=== PATIENT | female | born 1960 | race Caucasian/White ===

== ENCOUNTER → 2016-09-23 | Outpatient (CLI) | payer BC ==
--- NOTE | 2016-09-23 08:49 | MR ---
EXAMINATION TYPE: MR brain wo con DATE OF EXAM: 09/23/2016 8:20 AM. COMPARISON: CT scan of the brain dated 10/10/2011. HISTORY: Bilateral hand paresthesias. Technique: Multiplanar, multiecho imaging of the brain was obtained without intravenous contrast on a 3 Michelle magnet. FINDINGS: Midline structures are unremarkable. There is a normal craniocervical junction. Echoplanar diffusion imaging is normal. There are normal vascular flow voids. There is mucoperiosteal thickening involving the right frontal sinus. There is a small air-fluid leve l in the right maxillary sinus. There is also mucoperiosteal thickening involving the right frontal s inus and the anterior ethmoid air cells as well as the left maxillary sinus. Both orbits are normal. There is no evidence of a CP angle mass lesion. There is no focal lesion, mass effect or midline shift identified. I do not see evidence of intracran ial blood IMPRESSION: 1. NORMAL MRI OF THE BRAIN. 2. ACUTE ON CHRONIC MAXILLARY SINUSITIS.
== END | disposition home or self-care (01) ==
LOC: RADMRIMAIN 07:40
PROVIDERS: ATTEND Family Medicine
DX: R20.2 Paresthesia of skin (principal); M54.2 Cervicalgia
CPT/HCPCS: 70551

== ENCOUNTER → 2016-11-13 | Outpatient (CLI) | payer BC ==
--- NOTE | 2016-11-18 08:01 | MM ---
Reason for exam: screening (asymptomatic). Last mammogram was performed 1 year and 10 months ago. History: Family history of breast cancer in paternal grandmother. Physical Findings: A clinical breast exam by your physician is recommended on an annual basis and results should be correlated with mammographic findings. MG Screening Mammo w CAD Bilateral CC and MLO view(s) were taken. Prior study comparison: January 10, 2015, bilateral MG screening mammo w CAD. October 27, 2013, bilateral MG screening mammo w CAD. October 14, 2012, bilateral digital screening mammo w/CAD. There are scattered fibroglandular densities. Asymmetric density lateral left breast middle to posterior depth is more defined and warrants further evaluation. Summation density is possible as no correlate is seen on the MLO view. ASSESSMENT: Incomplete: need additional imaging evaluation, BI-RAD 0 RECOMMENDATION: Special view mammogram of the left breast. If lesion persists on supplemental views, image directed ultrasound is recommended. [facility] will attempt to contact patient to return for supplemental views and ultrasound if indicated.
== END | disposition home or self-care (01) ==
LOC: RADMAMWWP 16:39
PROVIDERS: ATTEND Obstetrics & Gynecology
DX: Z12.31 Encounter for screening mammogram for malignant neoplasm of breast (principal); R92.2 Inconclusive mammogram; Z80.3 Family history of malignant neoplasm of breast

== ENCOUNTER → 2016-11-21 | Outpatient (CLI) | payer BC ==
--- NOTE | 2016-11-21 12:06 | MM ---
Reason for exam: additional evaluation requested from abnormal screening. Last mammogram was performed less than 1 month ago. History: Family history of breast cancer in paternal grandmother. Physical Findings: Nurse did not find any significant physical abnormalities on exam. MG Work Up Mamm w CAD LT ML and spot compression CC view(s) were taken of the left breast. Prior study comparison: November 13, 2016, bilateral MG screening mammo w CAD. January 10, 2015, bilateral MG screening mammo w CAD. There are scattered fibroglandular densities. No significant new findings when compared with previous films. These results were verbally communicated with the patient and result sheet given to the patient on 11/21/16. ASSESSMENT: Benign, BI-RAD 2 RECOMMENDATION: Return to routine screening mammogram schedule for both breasts.
== END | disposition home or self-care (01) ==
LOC: RADMAMWWP 11:04
PROVIDERS: ATTEND Obstetrics & Gynecology
DX: R92.8 Other abnormal and inconclusive findings on diagnostic imaging of breast (principal)

== ENCOUNTER → 2017-07-30 | Outpatient (CLI) | payer BC ==
--- NOTE | 2017-07-30 15:39 | US ---
EXAMINATION TYPE: US axilla LT DATE OF EXAM: 07/30/2017 COMPARISON: NONE CLINICAL HISTORY: Localized Swell/MassLump L Axilla R22.32. Patient states odd feeling within upper l eft axilla that extends to the upper back, no palpable, no swelling, no discoloration, has been ongoi ng for almost a year with no known injury No obvious abnormality noted within axilla or upper left back. IMPRESSION: Scanning of area of concern shows no worrisome mass or fluid collection on images saved.
== END | disposition home or self-care (01) ==
LOC: RADUSWWP 14:36
PROVIDERS: ATTEND Family Medicine
DX: R22.32 Localized swelling, mass and lump, left upper limb (principal); R07.9 Chest pain, unspecified

== ENCOUNTER → 2017-12-08 | Outpatient (CLI) | payer BC ==
--- NOTE | 2017-12-08 15:50 | CT ---
EXAMINATION TYPE: CT sinus wo con DATE OF EXAM: 12/08/2017 COMPARISON: NONE HISTORY: Left ear and eye pain. CT DLP: 643 mGycm. Automated Exposure Control for Dose Reduction was Utilized. TECHNIQUE: CT scan of the sinuses is performed without contrast, axial images are obtained, coronal r eformatted images are also reviewed. FINDINGS: The paranasal sinuses including the frontal, ethmoid, sphenoid, and maxillary sinuses bila terally are well-aerated without abnormal opacification. The ostiomeatal complex is patent bilateral ly on the coronal images. There is a nasal septal deviation. Moderate size mark bullosa on the left incidentally noted. Visualized portion of mastoid air cells show no abnormal opacification. The globes are intact bilate rally. IMPRESSION: The sinuses are clear and the ostiomeatal complex is patent bilaterally.
== END | disposition home or self-care (01) ==
LOC: RADCTMAIN 15:19
PROVIDERS: ATTEND Family Medicine
DX: J01.01 Acute recurrent maxillary sinusitis (principal)
CPT/HCPCS: 70486

== ENCOUNTER 2018-04-23 11:38 | Inpatient (IN) | payer BC ==
[2018-04-23] MEDS ORDERED: ONDANSETRON 4 MG/2 ML VIAL IVP STA (13:32)
[2018-04-23] MEDS ORDERED: SODIUM CHLORIDE 0.9% 1,000 ML IV STA (13:32)
[2018-04-23] MEDS ORDERED: KETOROLAC 30 MG/ML 1 ML VIAL IVP STA (13:32)
--- NOTE | 2018-04-23 14:50 | CT ---
EXAMINATION TYPE: CT abdomen pelvis wo con DATE OF EXAM: 04/23/2018 COMPARISON: 04/06/2014 HISTORY: generalized abdominal pain CT DLP: 677.9 mGycm Automated exposure control for dose reduction was used. TECHNIQUE: Helical acquisition of images was performed from the lung bases through the pelvis. FINDINGS: Lack of intravenous contrast limits evaluation of the hollow and solid viscera. LUNG BASES: No significant abnormality is appreciated. Pectus excavatum deformity is partially visual ized. LIVER/GB: No significant abnormality is appreciated. Gallbladder is surgically absent. PANCREAS: Diffuse pancreatic atrophy is seen. SPLEEN: No significant abnormality is seen. ADRENALS: No significant abnormality is seen. KIDNEYS: No hydronephrosis or nephrolithiasis. FREE AIR: No free air is visualized REPRODUCTIVE ORGANS: No significant abnormality is seen URINARY BLADDER: No significant abnormality is seen. ADENOPATHY: No greater than 1 cm short axis lymph nodes are seen within the abdomen or pelvis given t he limitation of lack of intravenous contrast. OSSEOUS STRUCTURES: Scattered indeterminate subcentimeter sclerotic foci are seen within the pelvis, similar to 2014 presumably benign bone islands. Mild multilevel degenerative changes of the spine ar e noted. BOWEL: Small bowel is dilated distally up to 3.0 cm containing air-fluid levels and small bowel fece s sign of the distal and terminal ileum. There is also focal fat stranding surrounding the distal ile um. With trace amount of free fluid. There is decreased caliber of the terminal ileum without beaking . Findings are all suggestive of high-grade partial small bowel obstruction. Colon is entirely decomp ressed. There is lipomatous hypertrophy of the ileocecal valve. Intraluminal density within the right mid abdominal small bowel creates spray artifact from ingested substance. IMPRESSION: FINDINGS MOST COMPATIBLE WITH HIGH-GRADE PARTIAL SMALL BOWEL OBSTRUCTION WITH SMALL AMOUN T OF MESENTERIC EDEMA AND FAT STRANDING SURROUNDING THE NARROWED DISTAL ILEUM AND TERMINAL ILEUM WITH OUT BEAKING.
--- NOTE | 2018-04-23 15:02 | ED ---
General Adult HPI <Bob Bolaños - Last Filed: 04/23/18 16:00> - General Source: patient, RN notes reviewed Mode of arrival: ambulatory Limitations: no limitations <Magen Ellis - Last Filed: 04/23/18 17:13> - General Chief complaint: Nausea/Vomiting/Diarrhea Stated complaint: poss bowel obstruction Time Seen by Provider: 04/23/18 13:11 - History of Present Illness Initial comments: 58-year-old female with past medical history of hypertension and follow-up section 2 presents to the emergency department for a chief complaint abdominal pain and vomiting 2 days. Patient states she noticed this pain start yesterday. She states it is sharp pain in her upper abdomen as well as left lower quadrant. She states she normally has 4-6 loose stools per day but does not believe she had any bowel movements yesterday. She states she did have one small stool earlier today. Patient is not sure if she is passing gas. She is vomiting multiple times. She saw her primary care provider today and an x-ray was ordered. Patient states that after seeing the x-ray her physician was concerned for bowel obstruction and referred her to the emergency department. Patient has had a cholecystectomy about 30 years ago. Patient has no other complaints at this time including shortness of breath, chest pain, headache, or visual changes. (Magen Ellis) - Related Data Home Medications Medication Instructions Recorded Confirmed Meloxicam 15 mg PO DAILY 04/23/18 04/23/18 Allergies Allergy/AdvReac Type Severity Reaction Status Date / Time Iodinated Contrast- Oral and Allergy Severe Anaphylaxis Verified 04/23/18 12:06 IV Dye [Iodinated Contrast Media - IV Dye] Sulfa (Sulfonamide Allergy Rash/Hives Verified 04/23/18 12:06 Antibiotics) Review of Systems ROS Other: All systems not noted in ROS Statement are negative. <Bob Bolaños - Last Filed: 04/23/18 16:00> ROS Other: All systems not noted in ROS Statement are negative. <Magen Ellis - Last Filed: 04/23/18 17:13> ROS Statement: Those systems with pertinent positive or pertinent negative responses have been documented in the HPI. Past Medical History Additional Past Medical History / Comment(s): BOWEL OBSTRUCTION x2; KIDNEY STONE History of Any Multi-Drug Resistant Organisms: None Reported Past Surgical History: Cholecystectomy Additional Past Surgical History / Comment(s): LITHOTRIPSY Past Psychological History: No Psychological Hx Reported Smoking Status: Former smoker Past Alcohol Use History: None Reported Past Drug Use History: None Reported <Magen Ellis - Last Filed: 04/23/18 17:13> General Exam Limitations: no limitations General appearance: alert, in no apparent distress Head exam: Present: atraumatic, normocephalic, normal inspection ENT exam: Present: normal exam, mucous membranes moist Neck exam: Present: normal inspection, full ROM. Absent: tenderness, meningismus, lymphadenopathy Respiratory exam: Present: normal lung sounds bilaterally. Absent: respiratory distress, wheezes, rales, rhonchi, stridor Cardiovascular Exam: Present: regular rate, normal rhythm, normal heart sounds. Absent: bradycardia, tachycardia, irregular rhythm GI/Abdominal exam: Present: soft, tenderness (Upper abdominal tenderness in the right last in epigastric area. Mild left lower quadrant tenderness. No right lower quadrant tenderness.), normal bowel sounds. Absent: distended, rebound, rigid <Magen Ellis - Last Filed: 04/23/18 17:13> Course <Bob Bolaños - Last Filed: 04/23/18 16:00> <Magen Ellis - Last Filed: 04/23/18 17:13> Vital Signs 04/23/18 12:04 Temperature 97.4 F L Pulse Rate 58 L Respiratory 18 Rate Blood Pressure 119/82 O2 Sat by Pulse 99 Oximetry - Reevaluation(s) Reevaluation #1: 04/23/18 16:00 PA supervision: I proceeded [id number] evaluation the patient and did discuss findings with her and her . Patient did present with complaints of abdominal pain and especially epigastric region. Discomfort there. This is somewhat of a previous episode she had a bowel obstruction the resolved after nasogastric suction and IV fluids. Patient did have a CAT scan shows evidence of obstruction. Patient be admitted I did discuss case with Dr. Malin. Dr. Obrien will be consulted. I do agree with the assessment and plan (Bob Bolaños) Medical Decision Making - Lab Data Result diagrams: 04/23/18 15:05 <Bob Bolaños - Last Filed: 04/23/18 16:00> - Lab Data Result diagrams: 04/23/18 15:05 04/23/18 15:05 <Magen Ellis P - Last Filed: 04/23/18 17:13> - Medical Decision Making 58-year-old female with a past medical history of 2 bowel obstructions presents to the emergency department for abdominal pain. Patient had an x-ray outpatient earlier today that indicated bowel obstruction with possible. Patient states she has been vomiting multiple times a day since yesterday. She did have a small stool earlier today but is not sure if she is passing gas. On exam patient does have some tenderness of the upper abdomen without rebound. Patient states she has had small bowel obstructions in the past that did not require surgery but did require an NG tube. Patient states her only abdominal surgery was a cholecystectomy [address] shows high-grade partial small bowel obstruction with small amount of mesenteric edema and fat stranding surrounding the narrowed distal ileum and terminal ileum without beaking. Patient will have NG tube inserted, nothing by mouth and admitted with surgical consult. (Magen Ellis) - Lab Data Lab Results 04/23/18 04/23/18 04/23/18 Range/Units 15:05 15:05 15:05 WBC 10.0 (3.8-10.6) k/uL RBC 5.16 (3.80-5.40) m/uL Hgb 15.4 (11.4-16.0) gm/dL Hct 44.7 (34.0-46.0) % MCV 86.6 (80.0-100.0) fL MCH 29.9 (25.0-35.0) pg MCHC 34.5 (31.0-37.0) g/dL RDW 12.6 (11.5-15.5) % Plt Count 166 (150-450) k/uL Neutrophils % 89 % Lymphocytes % 7 % Monocytes % 4 % Eosinophils % 0 % Basophils % 0 % Neutrophils # 8.9 H (1.3-7.7) k/uL Lymphocytes # 0.7 L (1.0-4.8) k/uL Monocytes # 0.4 (0-1.0) k/uL Eosinophils # 0.0 (0-0.7) k/uL Basophils # 0.0 (0-0.2) k/uL Sodium 143 (137-145) mmol/L Potassium 4.2 (3.5-5.1) mmol/L Chloride 107 (98-107) mmol/L Carbon Dioxide 25 (22-30) mmol/L Anion Gap 11 mmol/L BUN 13 (7-17) mg/dL Creatinine 0.48 L (0.52-1.04) mg/dL Est GFR (CKD-EPI)AfAm >90 (>60 ml/min/1.73 sqM) Est GFR (CKD-EPI)NonAf >90 (>60 ml/min/1.73 sqM) Glucose 112 H (74-99) mg/dL Plasma Lactic Acid Hector 1.9 (0.7-2.0) mmol/L Calcium 9.4 (8.4-10.2) mg/dL Total Bilirubin 1.1 (0.2-1.3) mg/dL AST 42 H (14-36) U/L ALT 55 H (9-52) U/L Alkaline Phosphatase 82 (38-126) U/L Total Protein 7.4 (6.3-8.2) g/dL Albumin 4.4 (3.5-5.0) g/dL Amylase 34 (30-110) U/L Lipase 14 L (23-300) U/L Disposition <Bob Bolaños - Last Filed: 04/23/18 16:00> Is patient prescribed a controlled substance at d/c from ED?: No Time of Disposition: 17:13 <Magen Ellis - Last Filed: 04/23/18 17:13> Clinical Impression: Small bowel obstruction Disposition: ADMITTED IP TO THIS HOSP Condition: Good Referrals: Wenceslao Jackson DO [Primary Care Provider] - 1-2 days
[2018-04-23 15:28] LABS: ALT 55 U/L (9-52); AST 42 U/L (14-36); Albumin 4.4 g/dL (3.5-5.0); Alkaline Phosphatase 82 U/L (38-126); Amylase 34 U/L (30-110); Anion Gap 11 mmol/L; Blood Urea Nitrogen 13 mg/dL (7-17); Calcium 9.4 mg/dL (8.4-10.2); Carbon Dioxide 25 mmol/L (22-30); Chloride 107 mmol/L (98-107); Glucose 112 mg/dL (74-99); Lipase 14 U/L (23-300); Potassium 4.2 mmol/L (3.5-5.1); Sodium 143 mmol/L (137-145); Total Bilirubin 1.1 mg/dL (0.2-1.3); Total Protein 7.4 g/dL (6.3-8.2)
[2018-04-23] MEDS ORDERED: ONDANSETRON 4 MG/2 ML VIAL IVP PRN (15:40)
[2018-04-23] MEDS ORDERED: MORPHINE SULFATE 4 MG/ML SYRINGE IV PRN (15:40)
[2018-04-23] MEDS ORDERED: NALOXONE 0.4 MG/ML 1 ML VIAL IV PRN (15:40)
[2018-04-23] MEDS ORDERED: SODIUM CHLORIDE 0.9% 1,000 ML IV SCH (15:45)
[2018-04-23 16:03] LABS: Basophils % (A) 0 %; Eosinophils % (A) 0 %; HCT 44.7 % (34.0-46.0); HGB 15.4 gm/dL (11.4-16.0); Lymphocytes # (A) 0.7 k/uL (1.0-4.8); Lymphocytes % (A) 7 %; MCH 29.9 pg (25.0-35.0); MCHC 34.5 g/dL (31.0-37.0); MCV 86.6 fL (80.0-100.0); Mean Platelet Volume 7.4; Monocytes # (A) 0.4 k/uL (0-1.0); Monocytes % (A) 4 %; Neutrophils # (A) 8.9 k/uL (1.3-7.7); Neutrophils % (A) 89 %; Platelet Count 166 k/uL (150-450); RBC 5.16 m/uL (3.80-5.40); RDW 12.6 % (11.5-15.5)
[2018-04-23] MEDS: 0.9% NACL WITH KCL 20 MEQ/L 1,000 ML IV SCH (16:25)
--- NOTE | 2018-04-23 17:41 | XR ---
EXAMINATION TYPE: XR chest 1V portable DATE OF EXAM: 04/23/2018 COMPARISON: NONE HISTORY: NG tube placement TECHNIQUE: Single frontal view of the chest is obtained. FINDINGS: there is nasogastric tube and the tip appears to be at the gastroesophageal junction in th e distal esophagus. The lungs are clear. There is no heart failure. There is no pleural effusion. IMPRESSION: Nasogastric tube does not appear to be in the stomach.
[2018-04-23 19:24] VITALS: BMI 31.6
--- NOTE | 2018-04-23 19:25 | XR ---
EXAMINATION TYPE: XR chest 1V portable DATE OF EXAM: 04/23/2018 COMPARISON: Today HISTORY: Check tube placement TECHNIQUE: Single frontal view of the chest is obtained. FINDINGS: There is nasogastric tube with the tip in the body of the stomach. Lungs are clear. There is no heart failure. Heart is normal. There is no pleural effusion. Bony thorax appears intact. IMPRESSION: Nasogastric tube appears in good position.
[2018-04-23] MEDS: KETOROLAC 30 MG/ML 1 ML VIAL IVP PRN (22:11)
[2018-04-23 22:46] LABS: Appearance,Urine Cloudy (Clear); Bacteria,Urine Rare /hpf; Bilirubin,Urine Negative (Negative); Blood,Urine Negative (Negative); Color,Urine Yellow; Glucose,Urine (UA) Negative (Negative); Ketones,Urine 1+ (Negative); Leukocyte Esterase,Urine Small (Negative); Mucus,Urine Moderate /hpf; Nitrite,Urine Negative (Negative); PH, Urine 5.5 (5.0-8.0); Protein,Urine Trace (Negative); RBC,Urine 3 /hpf (0-5); Specific Gravity,Urine 1.023 (1.001-1.035); Squamous Epithelial Cell,Urine 4 /hpf (0-4); Urobilinogen,Urine <2.0 mg/dL (<2.0); WBC,Urine 6 /hpf (0-5)
[2018-04-24] MEDS: 0.9% NACL WITH KCL 20 MEQ/L 1,000 ML IV SCH ×2 (02:05→12:11)
[2018-04-24] MEDS: KETOROLAC 30 MG/ML 1 ML VIAL IVP PRN (04:21)
--- NOTE | 2018-04-24 12:21 | P.GSCN ---
History of Present Illness Consult date: 04/24/18 Reason for Consult: Bowel obstruction History of present illness: Patient known to our service. She presents to the ER yesterday with complaints of numerous episodes of nausea and vomiting. 2 days ago in the evening she started to feel nauseated with some mild epigastric pain. Yesterday the pain persisted in the epigastric region was also associated with numerous episodes of emesis. Appetite diminished. Pain is shifted somewhat down to the periumbilical region. Denies fevers. Describe some bloating. Small bowel movement yesterday morning and again today. In 2013 the patient had a somewhat similar episode. Prior to that she had an additional bowel obstruction. Recent colonoscopy normal with the exception of a polyp. The patient has had a small bowel series in the past that was normal. She has been seen by GI in the past for possible inflammatory bowel disease however a definitive diagnosis was never made. Describes 4-5 loose stools daily which is normal for her. No family history of inflammatory bowel disease. No rectal bleeding or melena. White blood cell count normal at 10. Review of Systems The patient denies any acute changes in vision or hearing, no dysphagia or odynophagia, no chest pain or shortness of breath, no dysuria or hematuria, no headache, no runny nose, no rectal bleeding or melena, no unexplained weight loss Past Medical History Additional Past Medical History / Comment(s): BOWEL OBSTRUCTION x2; KIDNEY STONE History of Any Multi-Drug Resistant Organisms: None Reported Past Surgical History: Cholecystectomy Additional Past Surgical History / Comment(s): LITHOTRIPSY Past Psychological History: No Psychological Hx Reported Smoking Status: Former smoker Past Alcohol Use History: None Reported Past Drug Use History: None Reported - Past Family History Mother Family Medical History: Hypertension Additional Family Medical History / Comment(s): dementia Father Family Medical History: Myocardial Infarction ([place]) Medications and Allergies Home Medications Medication Instructions Recorded Confirmed Type Meloxicam 15 mg PO DAILY 04/23/18 04/23/18 History Allergies Allergy/AdvReac Type Severity Reaction Status Date / Time Iodinated Contrast- Oral and Allergy Severe Anaphylaxis Verified 04/23/18 12:06 IV Dye [Iodinated Contrast Media - IV Dye] Sulfa (Sulfonamide Allergy Rash/Hives Verified 04/23/18 12:06 Antibiotics) Surgical - Exam Vital Signs Temp Pulse Resp BP Pulse Ox 97.4 F L 58 L 18 119/82 99 04/23/18 12:04 04/23/18 12:04 04/23/18 12:04 04/23/18 12:04 04/23/18 12:04 Physical exam: General: Well-developed, well-nourished HEENT: Normocephalic, sclerae nonicteric Abdomen: Mild mid abdominal tenderness, minimal distention Extremities: No edema Neuro: Alert and oriented Results - Labs 04/23/18 15:05 04/23/18 15:05 Abnormal Lab Results - Last 24 Hours (Table) 04/23/18 04/23/18 04/23/18 Range/Units 15:05 15:05 22:22 Neutrophils # 8.9 H (1.3-7.7) k/uL Lymphocytes # 0.7 L (1.0-4.8) k/uL Creatinine 0.48 L (0.52-1.04) mg/dL Glucose 112 H (74-99) mg/dL AST 42 H (14-36) U/L ALT 55 H (9-52) U/L Lipase 14 L (23-300) U/L Urine Appearance Cloudy H (Clear) Urine Protein Trace H (Negative) Urine Ketones 1+ H (Negative) Ur Leukocyte Esterase Small H (Negative) Urine WBC 6 H (0-5) /hpf Urine Bacteria Rare H (None) /hpf Urine Mucus Moderate H (None) /hpf Diabetes panel 04/23/18 Range/Units 15:05 Sodium 143 (137-145) mmol/L Potassium 4.2 (3.5-5.1) mmol/L Chloride 107 (98-107) mmol/L Carbon Dioxide 25 (22-30) mmol/L BUN 13 (7-17) mg/dL Creatinine 0.48 L (0.52-1.04) mg/dL Glucose 112 H (74-99) mg/dL Calcium 9.4 (8.4-10.2) mg/dL AST 42 H (14-36) U/L ALT 55 H (9-52) U/L Alkaline Phosphatase 82 (38-126) U/L Total Protein 7.4 (6.3-8.2) g/dL Albumin 4.4 (3.5-5.0) g/dL Calcium panel 04/23/18 Range/Units 15:05 Calcium 9.4 (8.4-10.2) mg/dL Albumin 4.4 (3.5-5.0) g/dL Pituitary panel 04/23/18 Range/Units 15:05 Sodium 143 (137-145) mmol/L Potassium 4.2 (3.5-5.1) mmol/L Chloride 107 (98-107) mmol/L Carbon Dioxide 25 (22-30) mmol/L BUN 13 (7-17) mg/dL Creatinine 0.48 L (0.52-1.04) mg/dL Glucose 112 H (74-99) mg/dL Calcium 9.4 (8.4-10.2) mg/dL Adrenal panel 04/23/18 Range/Units 15:05 Sodium 143 (137-145) mmol/L Potassium 4.2 (3.5-5.1) mmol/L Chloride 107 (98-107) mmol/L Carbon Dioxide 25 (22-30) mmol/L BUN 13 (7-17) mg/dL Creatinine 0.48 L (0.52-1.04) mg/dL Glucose 112 H (74-99) mg/dL Calcium 9.4 (8.4-10.2) mg/dL Total Bilirubin 1.1 (0.2-1.3) mg/dL AST 42 H (14-36) U/L ALT 55 H (9-52) U/L Alkaline Phosphatase 82 (38-126) U/L Total Protein 7.4 (6.3-8.2) g/dL Albumin 4.4 (3.5-5.0) g/dL Assessment and Plan (1) Small bowel obstruction Narrative/Plan: Patient with clinical presentation of small bowel obstruction. Looking at the CAT scan the transition point seems to be in the terminal ileum. There is minimal inflammatory changes. I do not see thickening of the terminal ileum to suggest definite inflammatory bowel disease. The patient responded quite well to conservative therapy in the past. She would like to avoid surgery if possible. We'll plan repeat abdominal x-rays tomorrow. Tentatively plan small bowel follow-through on Thursday morning. We'll follow closely. Current Visit: Yes Status: Acute Code(s): K56.69 - OTHER INTESTINAL OBSTRUCTION * DO NOT USE * SNOMED Code(s): 608627064
--- NOTE | 2018-04-24 15:18 | P.HPIM ---
History of Present Illness H&P Date: 04/23/18 (Late chart entry; patient seen in ED 08-09) Chief Complaint: Nausea vomiting and diarrhea 58-year-old female with past medical history of hypertension and follow-up section 2 presents to the emergency department for a chief complaint abdominal pain and vomiting 2 days. Patient states she noticed this pain start yesterday. She states it is sharp pain in her upper abdomen as well as left lower quadrant. She states she normally has 4-6 loose stools per day but does not believe she had any bowel movements yesterday. She states she did have one small stool earlier today. Patient is not sure if she is passing gas. She is vomiting multiple times. She saw her primary care provider today and an x-ray was ordered. Patient states that after seeing the x-ray her physician was concerned for bowel obstruction and referred her to the emergency department. Patient has had a cholecystectomy about 30 years ago. Patient has no other complaints at this time including shortness of breath, chest pain, headache, or visual changes. Review of Systems Constitutional: Reports weakness, Denies chills, Denies fever Eyes: denies blurred vision, denies loss of vision Ears, nose, mouth and throat: Denies headache Cardiovascular: Denies chest pain, Denies shortness of breath Respiratory: Denies congestion, Denies cough Gastrointestinal: Reports abdominal pain, Reports diarrhea, Reports nausea, Reports vomiting Genitourinary: Denies dysuria, Denies hematuria Musculoskeletal: Denies gait dysfunction, Denies low back pain, Denies myalgias Integumentary: Denies color changes, Denies rash Neurological: Denies confusion, Denies numbness, Denies visual changes Psychiatric: Denies anxiety Endocrine: Denies cold intolerance, Denies polydipsia, Denies polyuria Hematologic/Lymphatic: Denies easy bruising, Denies lymphadenopathy Past Medical History Additional Past Medical History / Comment(s): BOWEL OBSTRUCTION x2; KIDNEY STONE History of Any Multi-Drug Resistant Organisms: None Reported Past Surgical History: Cholecystectomy Additional Past Surgical History / Comment(s): LITHOTRIPSY Past Psychological History: No Psychological Hx Reported Smoking Status: Former smoker Past Alcohol Use History: None Reported Past Drug Use History: None Reported - Past Family History Mother Family Medical History: Hypertension Additional Family Medical History / Comment(s): dementia Father Family Medical History: Myocardial Infarction (MD) Medications and Allergies Home Medications Medication Instructions Recorded Confirmed Type Meloxicam 15 mg PO DAILY 04/23/18 04/23/18 History Allergies Allergy/AdvReac Type Severity Reaction Status Date / Time Iodinated Contrast- Oral and Allergy Severe Anaphylaxis Verified 04/23/18 12:06 IV Dye [Iodinated Contrast Media - IV Dye] Sulfa (Sulfonamide Allergy Rash/Hives Verified 04/23/18 12:06 Antibiotics) Physical Exam Vitals: Vital Signs Temp Pulse Pulse Resp BP BP Pulse Ox 04/24/18 07:00 97.9 F 61 14 148/74 97 04/23/18 23:25 98.3 F 66 18 144/70 95 04/23/18 20:26 98.2 F 69 12 152/75 95 04/23/18 17:53 80 16 151/85 98 Intake and Output 04/23/18 04/24/18 04/24/18 22:59 06:59 14:59 Intake Total 400 800 700 Output Total 350 Balance 50 800 700 Intake: Intake, IV Titration 400 800 700 Amount 0.9% NaCl with KCl 20 Meq 400 800 700 /l 1,000 ml @ 100 mls/hr IV .Q10H SHYAM Rx#: [id number] Output: Gastric Drainage 350 Other: Voiding Method Toilet Toilet Toilet # Voids 1 1 Weight 94.347 kg 94.347 kg - Constitutional General appearance: Present: average body habitus, cooperative, no acute distress - EENT Eyes: Present: anicteric sclerae, EOMI, PERRLA, normal appearance - Neck Neck: Present: normal ROM. Absent: lymphadenopathy, rigidity, thyromegaly Carotids: negative: bruit present Thyroid: bilateral: normal size, negative: enlarged, nodule Respiratory: bilateral: CTA, negative: rales, rhonchi, wheezing - Cardiovascular Rhythm: regular Heart sounds: normal: S1, S2 Abnormal Heart Sounds: Absent: systolic murmur, diastolic murmur General gastrointestinal: Present: normal bowel sounds, firm, mildly distended, mild tenderness Genitourinary Comment(s): deferred Integumentary: Present: normal turgor. Absent: jaundiced, rash, ulcer Neurologic: Present: CNII-XII intact. Absent: focal deficits Musculoskeletal: Present: gait normal, strength equal bilaterally Psychiatric: Present: A&O x's 3, appropriate affect, intact judgment & insight - Neck Neck: no lymphadenopathy, no thyromegaly Results CBC & Chem 7: 04/23/18 15:05 04/23/18 15:05 Labs: Abnormal Lab Results - Last 24 Hours (Table) 04/23/18 04/23/18 04/23/18 Range/Units 15:05 15:05 22:22 Neutrophils # 8.9 H (1.3-7.7) k/uL Lymphocytes # 0.7 L (1.0-4.8) k/uL Creatinine 0.48 L (0.52-1.04) mg/dL Glucose 112 H (74-99) mg/dL AST 42 H (14-36) U/L ALT 55 H (9-52) U/L Lipase 14 L (23-300) U/L Urine Appearance Cloudy H (Clear) Urine Protein Trace H (Negative) Urine Ketones 1+ H (Negative) Ur Leukocyte Esterase Small H (Negative) Urine WBC 6 H (0-5) /hpf Urine Bacteria Rare H (None) /hpf Urine Mucus Moderate H (None) /hpf Thrombosis Risk Factor Assmnt - Choose All That Apply Any of the Below Risk Factors Present?: Yes Each Factor Represents 1 point: Age 41-60 years, Obesity (BMI >25) Other Risk Factors: No Other congenital or acquired thrombophilia - If yes, enter type in comment: No Thrombosis Risk Factor Assessment Total Risk Factor Score: 2 Thrombosis Risk Factor Assessment Level: Low Risk Assessment and Plan Assessment: 1. Small bowel obstruction - We will admit the patient to general medical floor - Continue with IV fluid hydration; NG tube and keep patient nothing by mouth - We plan to repeat abdominal x-ray in the morning and possible small bowel follow-through on Thursday - Surgery is consulted and recommendations are pending - We will monitor renal function and electrolytes closely 2. Possible UTI - Patient is afebrile and asymptomatic with normal white blood count - We will send urine for culture and sensitivity; we will start antibiotics if urine cultures positive or patient becomes symptomatic 3. Transaminitis - Unclear etiology; we will monitor liver enzymes closely and further evaluation if continue to trend up 4. DVT prophylaxis; SCDs only CODE STATUS; full code Time with Patient: Greater than 30
--- NOTE | 2018-04-24 15:55 | P.PN ---
Subjective Progress Note Date: 04/24/18 Principal diagnosis: Small bowel obstruction Mr. Garcia is a 58-year-old female with a past medical history of hypertension admitted to the hospital with a chief complaint of abdominal pain and vomiting for 2 days. Patient had a CAT scan of the abdomen showing high-grade partial small bowel obstruction with small amount of the centric edema. So the patient has been admitted for partial small bowel obstruction. Patient has an NG tube in place. on 04/24/18 - This morning patient is lying in bed appears to be no acute distress. Patient states that she has not been throwing up since having the NG tube. She still is nauseous. Patient denies having any chest pain or palpitations. No cough or difficulty in breathing. She states that she can feel some cramping sensation in her abdomen. But she is not passing any gas. Objective - Vital Signs Vital signs: Vital Signs Temp 97.9 F 04/24/18 07:00 Pulse 61 04/24/18 07:00 Resp 14 04/24/18 07:00 BP 148/74 04/24/18 07:00 Pulse Ox 97 04/24/18 07:00 Intake & Output 04/23/18 04/24/18 04/24/18 18:59 06:59 18:59 Intake Total 1200 700 Output Total 350 Balance 850 700 Weight 94.347 kg 94.347 kg Intake: Intake, IV Titration 1200 700 Amount 0.9% NaCl with KCl 20 Meq 1200 700 /l 1,000 ml @ 100 mls/hr IV .Q10H SHYAM Rx#: [id number] Output: Gastric Drainage 350 Other: Voiding Method Toilet Toilet # Voids 1 - Exam Gen. examination-patient appears to be no acute distress, NG tube in place. HEENT-no pallor no icterus Neck-no JVD no thyromegaly Cardiovascular S1 and S2 heard Respiratory-bilateral breath sounds diminished at the lower lung bases. No wheezing or crackles. Abdomen - soft, mild tenderness in the epigastric region, hyperactive bowel sounds Extremities-no edema, no cyanosis. 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 No focal neurological deficits. - Labs CBC & Chem 7: 04/23/18 15:05 04/23/18 15:05 Labs: Abnormal Lab Results - Last 24 Hours (Table) 11/02/18 11/02/18 Range/Units 15:05 22:22 Neutrophils # 8.9 H (1.3-7.7) k/uL Lymphocytes # 0.7 L (1.0-4.8) k/uL Urine Appearance Cloudy H (Clear) Urine Protein Trace H (Negative) Urine Ketones 1+ H (Negative) Ur Leukocyte Esterase Small H (Negative) Urine WBC 6 H (0-5) /hpf Urine Bacteria Rare H (None) /hpf Urine Mucus Moderate H (None) /hpf Assessment and Plan Assessment: Partial small bowel obstruction Possible UTI Hypertension History of cholecystectomy Plan: Patient has NG tube in place. We will continue the current medication regimen. Surgery on board following the patient. Patient will be followed by Dr. Holman from tomorrow.
[2018-04-25] MEDS: 0.9% NACL WITH KCL 20 MEQ/L 1,000 ML IV SCH ×4 (04:13→19:36)
--- NOTE | 2018-04-25 06:34 | XR ---
EXAMINATION TYPE: XR abdomen 2V , 3 VIEWS DATE OF EXAM ORDERED: 04/25/2018 HISTORY: Follow-up obstruction. COMPARISON: Previous study dated 04/23/2018. FINDINGS: There has been a previous cholecystectomy. There is an NG tube with its tip in the stomach . Lung bases are clear. Long air-fluid levels in the proximal small bowel have resolved. There is no evidence of obstruction at this time. There is no evidence of free air. There are phleboliths within the pelvis. IMPRESSION: RESOLUTION OF THE PATIENT'S PARTIAL SMALL BOWEL OBSTRUCTION.
[2018-04-25] MEDS: KETOROLAC 30 MG/ML 1 ML VIAL IVP PRN ×2 (14:14→23:24)
--- NOTE | 2018-04-25 15:35 | P.PN ---
Subjective Progress Note Date: 04/25/18 Principal diagnosis: Small bowel obstruction Patient doing well today. Actually complaining of a headache. She had liquid stools yesterday. Some flatus today. Mild left upper quadrant abdominal pain. Today's x-rays show improvement. Objective - Vital Signs Vital signs: Vital Signs Temp 99.8 F H 04/25/18 15:00 Pulse 77 04/25/18 15:00 Resp 12 04/25/18 15:00 BP 149/81 04/25/18 15:00 Pulse Ox 98 04/25/18 15:00 Intake & Output 04/24/18 04/25/18 04/25/18 19:59 06:59 18:59 Intake Total 700 Balance 700 Weight 94.347 kg Intake: Intake, IV Titration 700 Amount 0.9% NaCl with KCl 20 Meq 700 /l 1,000 ml @ 100 mls/hr IV .Q10H SHYAM Rx#: [id number] Other: Voiding Method Toilet # Voids - Exam Abdomen: Soft, mild diffuse tenderness - Labs CBC & Chem 7: 04/23/18 15:05 04/23/18 15:05 Assessment and Plan (1) Small bowel obstruction Narrative/Plan: Will order small bowel series for tomorrow. Keep nasogastric tube in place for now. Current Visit: Yes Status: Acute Code(s): K56.69 - OTHER INTESTINAL OBSTRUCTION * DO NOT USE * [employer] Code(s): 183381598
--- NOTE | 2018-04-25 22:31 | P.PN ---
Subjective Progress Note Date: 04/25/18 Principal diagnosis: Small bowel obstruction Mr. Garcia is a 58-year-old female with a past medical history of hypertension admitted to the hospital with a chief complaint of abdominal pain and vomiting for 2 days. Patient had a CAT scan of the abdomen showing high-grade partial small bowel obstruction with small amount of the centric edema. So the patient has been admitted for partial small bowel obstruction. Patient has an NG tube in place. on 04/25/18 - This morning patient is lying in bed appears to be no acute distress. Patient states that she has not been throwing up since having the NG tube. She still is nauseous. Patient denies having any chest pain or palpitations. No cough or difficulty in breathing. She states that she can feel some cramping sensation in her abdomen. She did not have a bowel movement but passing flatus. Objective - Vital Signs Vital signs: Vital Signs Temp 99.8 F H 04/25/18 15:00 Pulse 77 04/25/18 15:00 Resp 12 04/25/18 15:00 BP 149/81 04/25/18 15:00 Pulse Ox 98 04/25/18 15:00 Intake & Output 04/24/18 04/25/18 04/25/18 19:59 06:59 18:59 Intake Total 700 Balance 700 Weight 94.347 kg Intake: Intake, IV Titration 700 Amount 0.9% NaCl with KCl 20 Meq 700 /l 1,000 ml @ 100 mls/hr IV .Q10H SHYAM Rx#: [id number] Other: Voiding Method Toilet # Voids - Exam Gen. examination-patient appears to be no acute distress, NG tube in place. HEENT-no pallor no icterus Neck-no JVD no thyromegaly Cardiovascular S1 and S2 heard Respiratory-bilateral breath sounds diminished at the lower lung bases. No wheezing or crackles. Abdomen - soft, mild tenderness in the epigastric region, hypoactive bowel sounds Extremities-no edema, no cyanosis. 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 No focal neurological deficits. - Labs CBC & Chem 7: 04/23/18 15:05 04/23/18 15:05 Assessment and Plan Assessment: Partial small bowel obstruction Possible UTI Hypertension History of cholecystectomy Plan: Patient has NG tube in place. We will continue the current medication regimen. Surgery on board following the patient. Further recommendations to follow depending on the progress of the patient.
[2018-04-26] MEDS: 0.9% NACL WITH KCL 20 MEQ/L 1,000 ML IV SCH (05:32)
[2018-04-26 07:28] VITALS: BP 153/81; PULSE 67; RESP 16; TEMP 97.7
[2018-04-26 08:24] LABS: Basophils % (A) 0 %; Eosinophils # (A) 0.1 k/uL (0-0.7); Eosinophils % (A) 1 %; HCT 41.7 % (34.0-46.0); HGB 14.4 gm/dL (11.4-16.0); Lymphocytes # (A) 1.3 k/uL (1.0-4.8); Lymphocytes % (A) 15 %; MCH 29.4 pg (25.0-35.0); MCHC 34.4 g/dL (31.0-37.0); MCV 85.4 fL (80.0-100.0); Mean Platelet Volume 6.9; Monocytes # (A) 0.5 k/uL (0-1.0); Monocytes % (A) 6 %; Neutrophils # (A) 6.6 k/uL (1.3-7.7); Neutrophils % (A) 76 %; Platelet Count 158 k/uL (150-450); RBC 4.88 m/uL (3.80-5.40); RDW 12.1 % (11.5-15.5); WBC 8.6 k/uL (3.8-10.6)
[2018-04-26 08:40] LABS: Anion Gap 8 mmol/L; Blood Urea Nitrogen 14 mg/dL (7-17); Carbon Dioxide 26 mmol/L (22-30); Chloride 104 mmol/L (98-107); Glucose 73 mg/dL (74-99); Potassium 4.7 mmol/L (3.5-5.1); Sodium 138 mmol/L (137-145)
[2018-04-26] MEDS ORDERED: ACETAMINOPHEN IV (For NPO) 1,000 MG in EMPTY BAG 1 BAG IVPB SCH (10:32)
--- NOTE | 2018-04-26 10:42 | FL ---
EXAMINATION TYPE: FL small bowel follow through DATE OF EXAM: 04/26/2018 CLINICAL HISTORY: Evaluate for obstruction TECHNIQUE: A single contrast small bowel follow through is performed utilizing barium. COMPARISON: None FINDINGS: Beef Killer image of the abdomen shows no gross abnormality. The small bowel study shows normal transit to the colon in less than 30 minutes. There is a thickene d mucosal fold pattern throughout the distal small bowel. There is no evidence of any stricture. No definite filling defect 1 minute and 8 seconds of fluoroscopy and 10 images submitted IMPRESSION: 1. No diagnostic evidence of obstruction. Thickened folds within the distal ileum are noted correlate for enteritis.
--- NOTE | 2018-04-26 12:45 | P.PN ---
Subjective Progress Note Date: 04/26/18 Principal diagnosis: Small bowel obstruction Patient doing well today. She continues to have bowel function. Today small bowel series was normal with the exception of mild thickening of the folds of the terminal ileum. Denies pain. White blood cell count 8.6. Objective - Vital Signs Vital signs: Vital Signs Temp 97.7 F 04/26/18 07:00 Pulse 67 04/26/18 07:00 Resp 16 04/26/18 07:00 BP 153/81 04/26/18 07:00 Pulse Ox 96 04/26/18 07:00 Intake & Output 04/25/18 04/26/18 04/26/18 18:59 06:59 18:59 Intake Total 700 1900 Balance 700 1900 Weight 94.347 kg Intake: Intake, IV Titration 700 1900 Amount 0.9% NaCl with KCl 20 Meq 700 1900 /l 1,000 ml @ 100 mls/hr IV .Q10H SHYAM Rx#: [id number] Other: Voiding Method Toilet Toilet # Voids 2 - Exam Abdomen: Soft, nondistended, nontender - Labs CBC & Chem 7: 04/26/18 08:02 04/26/18 08:02 Labs: Abnormal Lab Results - Last 24 Hours (Table) 04/26/18 Range/Units 08:02 Creatinine 0.50 L (0.52-1.04) mg/dL Glucose 73 L (74-99) mg/dL Assessment and Plan (1) Small bowel obstruction Narrative/Plan: Small bowel series results reviewed with the patient in detail. Suspect mild inflammatory bowel disease as the etiology. Recommend follow-up with both myself and GI postdischarge. Begin liquids. May advance of tolerates. Possible discharge later today. Current Visit: Yes Status: Acute Code(s): K56.69 - OTHER INTESTINAL OBSTRUCTION * DO NOT USE * [employer] Code(s): 662618224
--- NOTE | 2018-04-27 23:48 | P.DS ---
Providers Date of admission: 04/23/18 15:59 Expected date of discharge: 04/26/18 Attending physician: Yves Holman MD Consults: 04/23/18 15:40 Consult Physician Stat Consulting Provider: Jimenez Obrien Consult Reason/Comments: SBO, vomiting Do you want consulting provider notified?: Yes Primary care physician: Wenceslao Jackson Hospital Course: Discharge diagnosis Partial small bowel obstruction. Resolved Possible UTI Hypertension History of cholecystectomy Hospital course Mr. Garcia is a 58-year-old female with a past medical history of hypertension admitted to the hospital with a chief complaint of abdominal pain and vomiting for 2 days. Patient had a CAT scan of the abdomen showing high-grade partial small bowel obstruction with small amount of the centric edema. So the patient has been admitted for partial small bowel obstruction. Patient has an NG tube in place. on 04/25/18 - This morning patient is lying in bed appears to be no acute distress. Patient states that she has not been throwing up since having the NG tube. She still is nauseous. Patient denies having any chest pain or palpitations. No cough or difficulty in breathing. She states that she can feel some cramping sensation in her abdomen. She did not have a bowel movement but passing flatus. 04/26/2018 Patient did have bowel movement and obstructive has resolved. Continued on Combivent and management. No fever no chills. No abdominal pain. No nausea vomiting. Tolerating oral diet. Stable to be discharged home. Discharge physical examination was done and vitals reviewed. Patient Condition at Discharge: Good Plan - Discharge Summary Discharge Rx Participant: Yes New Discharge Prescriptions: Continue Meloxicam 15 mg PO DAILY Discharge Medication List Meloxicam 15 mg PO DAILY 04/23/18 [History] Follow up Appointment(s)/Referral(s): Jimenez Obrien MD [Medical Doctor] - 05/10/18 1:50 pm Wenceslao Jackson DO [Primary Care Provider] - 04/28/18 8:20 am (Patient to please call office upon discharge to answer questions with the office before appointment Appointment is set in [place] [id number] ) Patient Instructions/Handouts: Bowel Obstruction (DC) Discharge Disposition: HOME SELF-CARE
== END 2018-04-26 15:54 | disposition home or self-care (01) | DRG 389 ==
LOC: EC 11:38 → 4SSUR 15:59
PROVIDERS: ADMIT Internal Medicine; ATTEND Internal Medicine
DX: K56.600 Partial intestinal obstruction, unspecified as to cause (principal); N39.0 Urinary tract infection, site not specified; I10 Essential (primary) hypertension; Z82.49 Family history of ischemic heart disease and other diseases of the circulatory system; Z87.442 Personal history of urinary calculi; Z87.891 Personal history of nicotine dependence; Z90.49 Acquired absence of other specified parts of digestive tract; R74.0 Nonspecific elevation of levels of transaminase and lactic acid dehydrogenase [LDH]; Z88.2 Allergy status to sulfonamides; Z91.041 Radiographic dye allergy status
CPT/HCPCS: 36415; 71045; 74019; 74176; 74250; 80048; 80053; 81001; 82150; 83605; 83690; 85025; 96361; 96374; 96375; 99285

== ENCOUNTER → 2018-04-23 | Outpatient (CLI) | payer BC ==
--- NOTE | 2018-04-23 12:41 | XR ---
EXAMINATION TYPE: XR abdomen 2V DATE OF EXAM: 04/23/2018 COMPARISON: 01/24/2016 HISTORY: Nausea and vomiting TECHNIQUE: One view abdominal series FINDINGS: The osseous structures are intact. The bowel gas pattern is nonspecific. Postsurgical change right u pper quadrant. Air-fluid levels are seen with dilated bowel loops. Surgical clips in the pelvis are s een and there are numerous vascular calcifications. Arthropathy of the hip joints. Surgical clips in the right upper quadrant are noted. IMPRESSION: 1. Dilated small bowel loops with air-fluid levels correlate for bowel obstruction. Enteritis in the differential diagnosis. Inflammatory process not excluded. Report called to the patient's referring c linician. CT scan recommended.
== END | disposition home or self-care (01) ==
LOC: RADXRYALE 10:08
PROVIDERS: ATTEND Physician Assistant Medical
DX: K31.89 Other diseases of stomach and duodenum (principal); R10.13 Epigastric pain; R11.2 Nausea with vomiting, unspecified
CPT/HCPCS: 74019

== ENCOUNTER → 2018-07-09 | Day surgery (SDC) | payer BC ==
--- NOTE | 2018-07-09 09:10 | P.PCN ---
Date of Procedure: 07/09/18 Procedure(s) Performed: BRIEF HISTORY: Patient is a 58-year-old, pleasant, white white female, scheduled for an upper endoscopy as a part of value should atypical chest pain for the last 1 month duration. Check cardia lesion of the was negative. She was simply be started on Pepcid 20 mg daily and symptoms are gradually improving. She is scheduled for an upper endoscopy to evaluate for GERD causing the chest pain. PROCEDURE PERFORMED: Esophagogastroduodenoscopy with biopsy. PREOPERATIVE DIAGNOSIS: Atypical chest pain. IV sedation per anesthesia. PROCEDURE: After informed consent was obtained, the patient was brought into the endoscopy unit. IV sedation was administered by Anesthesia under continuous monitoring. Initially the Olympus GIF-140 video endoscope was inserted into the mouth. Esophagus intubated without any difficulty. It was gradually advanced into the stomach and duodenum and carefully examined. The bulb and the second part of the duodenum appeared normal. The scope at this time was withdrawn to the stomach, adequately insufflated with air, and upon careful examination, mucosa of the antrum, body, cardia and the fundus appeared normal. The scope was then withdrawn into the esophagus. The GE junction was located at 39 cm from the incisors. The esophagus appeared normal. There were no erosions or ulcerations seen and the patient tolerated the procedure well. IMPRESSION: 1. Antral gastritis. 2. No evidence of esophagitis or peptic ulcer disease. RECOMMENDATIONS: The findings of this examination were discussed with the patient as well as a family. She was advised to follow with the biopsy results. Since she's doing well on the current medications she was advised to continue the same and follow antireflux measures.
== END ==
LOC: RADMRIMAIN 08:24
PROVIDERS: ATTEND Internal Medicine Gastroenterology
DX: Z53.9 Procedure and treatment not carried out, unspecified reason (principal)

== ENCOUNTER → 2018-07-23 | Day surgery (SDC) | payer BC ==
[~2018-07-23] MED LIST: GLUCAGON 1 MG/ML VIAL IM STA
[2018-07-23 09:29] VITALS: BP 149/65; PULSE 56; RESP 16; TEMP 97.9
--- NOTE | 2018-07-23 12:04 | MR ---
EXAMINATION TYPE: MR Enterography DATE OF EXAM: 07/23/2018 COMPARISON: CT abdomen and pelvis April 23, 2018. Small bowel follow-through April 26, 2018. HISTORY: Intestinal obstruction per order. CONTRAST: Standard multiplanar, multisequence imaging of the abdomen is performed without and with IV contrast, patient is injected with 10 mL intravenous Gadavist gadolinium contrast. Oral Volumen and Water was given as per enterography protocol. FINDINGS: BOWEL: There is satisfactory fluid-filled distention of stomach without suspicious wall thickening. T here is satisfactory fluid-filled distention of duodenum without suspicious mucosal enhancement or ec centric wall thickening. Duodenal jejunal junction or ligament of Treitz is inferior in position rela tive to the gastric antrum system with underlying malrotation. There is slightly suboptimal fluid-robyn led dilatation of jejunal loops in the left abdomen without suspicious focal eccentric wall enhanceme nt or mural thickening. There is suboptimal fluid-filled distention of ileal loops in the right abdom en without suspicious eccentric wall thickening or mesenteric edema. Cecum position is stable in the right midabdomen. No suspicious inflammatory change of the terminal ileum is identified. Some fluid e xtends into the hepatic flexure. There is poor distention of colon which is predominantly gas-filled. No suspicious eccentric enhancement or wall thickening is identified. Other: Gallbladder is noted surgically absent mass is not visualized. Moderate to severe fat replaced atrophy of pancreas is redemonstrated. The spleen and both kidneys and adrenal glands are felt withi n normal limits. There is no concerning abdominal fluid collection. Visualized osseous structures are intact. No suspicious abdominal adenopathy is seen. IMPRESSION: Interval complete resolution of distal small bowel obstruction without evidence of active small or large bowel inflammation or significant focal stricture. Abnormal positioning ligament of T jan consistent with underlying malrotation noted.
== END ==
LOC: RADMRIMAIN 09:13
PROVIDERS: ATTEND Internal Medicine Gastroenterology
DX: Z09 Encounter for follow-up examination after completed treatment for conditions other than malignant neoplasm (principal); Z87.19 Personal history of other diseases of the digestive system
CPT/HCPCS: 96372; 72197; 74183; J1610; A9585

== ENCOUNTER → 2019-02-17 | Outpatient (CLI) | payer BC ==
--- NOTE | 2019-02-17 11:04 | XR ---
EXAMINATION TYPE: XR knee complete RT DATE OF EXAM: 02/17/2019 COMPARISON: NONE HISTORY: Pain TECHNIQUE: Four views are submitted. FINDINGS: Mild narrowing the medial compartment of the knee joint and the patellofemoral joint. No erosive cano ges. Mild diffuse osteopenia. Osseous structures are intact. No acute fracture seen. IMPRESSION: 1. No acute fracture or dislocation.
--- NOTE | 2019-02-17 11:05 | XR ---
EXAMINATION TYPE: XR shoulder limited RT DATE OF EXAM: 02/17/2019 COMPARISON: NONE HISTORY: Pain TECHNIQUE: Two views are submitted. FINDINGS: The osseous structures are intact. There is no acute fracture or dislocation. The AC joint is maint ained. IMPRESSION: 1. No acute process.
--- NOTE | 2019-02-17 11:06 | XR ---
EXAMINATION TYPE: XR cervical spine comp DATE OF EXAM: 02/17/2019 COMPARISON: NONE HISTORY: Pain TECHNIQUE: Four views are submitted. FINDINGS: The odontoid is intact. There are no compression deformities. The prevertebral soft tissue structur es are within normal limits. There is loss of the normal cervical lordosis with multilevel moderate to severe degenerative disc disease. Posterior spondylosis and anterior hypertrophic spurring are not ed at multiple levels. Bilateral foraminal encroachment at levels C3-C7. IMPRESSION: 1. Moderate to severe multilevel degenerative disc disease with multilevel significant foraminal encr oachment. Canal stenosis suspected recommend follow-up MRI.
== END | disposition home or self-care (01) ==
LOC: RADXRYALE 10:35
PROVIDERS: ATTEND Family Medicine
DX: M50.30 Other cervical disc degeneration, unspecified cervical region (principal); M25.511 Pain in right shoulder; M25.561 Pain in right knee
CPT/HCPCS: 72050

== ENCOUNTER → 2019-03-09 | Outpatient (CLI) | payer BC ==
--- NOTE | 2019-03-10 08:10 | MR ---
MRI CERVICAL SPINE: CLINICAL HISTORY: Cervicalgia and disc degeneration per order. Neck pain with numbness into right bello d. TECHNIQUE: Multiplanar, multisequence imaging of the cervical spine is performed without IV contrast. . COMPARISON: Cervical spine x-ray February 17, 2019. FINDINGS: Sagittal images of the cervical spine show the craniocervical junction to appear within nor mal limits. The cervical and upper thoracic spinal cord is normal in caliber and signal. There is ge neralized canal narrowing with more focal narrowing C4-C5 and to greater degree C6-C7 level. There is loss of normal cervical curvature. There is multilevel spondylolisthesis or grade 1 retrolisthesis o f C4 on C5, C5 on C6, and C6 on C7. The vertebral body heights remain normal. There is moderate mult ilevel disc space narrowing and anterior spurring C4-C5 through C6-C7 levels. Heterogeneous Modic typ e I endplate changes C4-C5 level and Modic type II endplate changes C6-C7 level. Combination of Modic type I and type II endplate changes C5-C6 level. Axial images show the C2-C3 level to appear within normal limits. Axial images at the C3-C4 level shows lobulated central with right paracentral/foraminal disc protrus ion component effacing anterior thecal sac with asymmetric moderate to severe right-sided neural fora basim narrowing. Axial images at C4-C5 level shows central disc protrusion with inferior paracentral/foraminal disc pr otrusion component and uncovertebral facet degenerative changes, there is effacement of the anterior and right paracentral spinal canal and advanced right and mild to moderate left-sided neural foramina l narrowing. Axial images at C5-C6 level show spondylolisthesis with broad-based lobulated right paracentral disc protrusion, there is advanced right and mild to moderate left-sided neural foraminal narrowing as the re is some marginal spurring also present. Axial images at C6-C7 level show large central disc protrusion effacing anterior thecal sac up to raymond tral surface of spinal cord which is flattened with moderate bilateral neural foraminal narrowing. Axial images at C7-T1 level are within normal limits. IMPRESSION: Multilevel spondylolisthesis and degenerative changes mid to lower cervical spine as deta iled above.
== END | disposition home or self-care (01) ==
LOC: RADMRIMAIN 16:44
PROVIDERS: ATTEND Family Medicine
DX: M99.71 Connective tissue and disc stenosis of intervertebral foramina of cervical region (principal); M48.02 Spinal stenosis, cervical region; M50.21 Other cervical disc displacement, high cervical region; M43.12 Spondylolisthesis, cervical region
CPT/HCPCS: 72141

== ENCOUNTER → 2019-06-24 | Outpatient (CLI) | payer BC ==
--- NOTE | 2019-06-28 13:12 | MM ---
Reason for exam: screening (asymptomatic). Last mammogram was performed 2 years and 7 months ago. History: Patient is postmenopausal. Family history of breast cancer in paternal grandmother. Physical Findings: A clinical breast exam by your physician is recommended on an annual basis and results should be correlated with mammographic findings. MG Screening Mammo w CAD Bilateral CC and MLO view(s) were taken. Prior study comparison: November 21, 2016, left breast MG work up mamm w CAD LT. November 13, 2016, bilateral MG screening mammo w CAD. There are scattered fibroglandular densities. No significant changes when compared with prior studies. ASSESSMENT: Negative, BI-RAD 1 RECOMMENDATION: Routine screening mammogram of both breasts in 1 year.
== END | disposition home or self-care (01) ==
LOC: RADMAMWWP 13:53
PROVIDERS: ATTEND Family Medicine
DX: Z12.31 Encounter for screening mammogram for malignant neoplasm of breast (principal)
CPT/HCPCS: 77067

== ENCOUNTER → 2020-07-19 | Outpatient (CLI) | payer BC ==
--- NOTE | 2020-07-20 11:00 | MM ---
Reason for exam: additional evaluation requested from prior study. Last mammogram was performed 1 year and 1 month ago. History: Patient is postmenopausal. Family history of breast cancer in paternal grandmother. Physical Findings: Nurse did not find any significant physical abnormalities on exam. MG Diagnostic Mammo w CAD SHAUNA Bilateral CC and MLO view(s) were taken. Prior study comparison: June 24, 2019, bilateral MG screening mammo w CAD. November 21, 2016, left breast MG work up mamm w CAD LT. There are scattered fibroglandular densities. No significant new findings when compared with previous films. These results were verbally communicated with the patient and result sheet given to the patient on 07/19/20. ASSESSMENT: Incomplete: need additional imaging evaluation, BI-RAD 0 RECOMMENDATION: Ultrasound of the left breast. (for pain)
--- NOTE | 2020-07-20 11:02 | USB ---
Reason for exam: additional evaluation requested from abnormal screening. History: Patient is postmenopausal. Family history of breast cancer in paternal grandmother. US Breast LT Left complete breast ultrasound includes all four quadrants, the retroareolar region and axilla. Finding demonstrates no cystic or solid lesion seen. At the patient palpated site right lateral chest wall labeled 4 o'clock zone C, no discrete lesion. These results were verbally communicated with the patient and result sheet given to the patient on 07/19/20. ASSESSMENT: Negative, BI-RAD 1 RECOMMENDATION: Routine screening mammogram of both breasts in 1 year. Manage on a clinical basis with regard to pain. If any enlarging palpable area, the area can be rescanned.
== END | disposition home or self-care (01) ==
LOC: RADMAMWWP 14:47
PROVIDERS: ATTEND Obstetrics & Gynecology
DX: N64.4 Mastodynia (principal); R92.8 Other abnormal and inconclusive findings on diagnostic imaging of breast
CPT/HCPCS: 77066

== ENCOUNTER → 2020-08-09 | Outpatient (CLI) | payer BC ==
[2020-08-09 11:09] VITALS: BP 126/85; PULSE 57; RESP 18; TEMP 98.6
--- NOTE | 2020-08-09 11:30 | P.GSHP ---
History of Present Illness H&P Date: 08/09/20 Chief Complaint: breast pain Faby is a 60 year old female who complains of nodularity under the left axilla, and aching across the top of the left breast and the UOQ. It was an aching sensation when it occurred. She is no longer experiencing this. She did have a bilateral mammogram in 120 821. This was felt to show no significant areas of concern but ultrasound of the left breast for pain was recommended. An ultrasound was performed [id number] and this did not show any lesions of concern was felt to be benign BIRADS 1. She does feel some nodularity in the left axillary area but no lumps masses or nodules in either breast. She is not complaining of any nipple discharge or skin changes. She has never had any surgery on her breast. She has not had any history of any recent trauma or infection in the past. Caffeine: trying to stop at this time , haven't had any for a week, used to have three large 20 0z a week nicotine: none jose-bromine: works for [employer] Family history: paternal grandmother: breast cancer maternal grandmother: colon cancer paternal cousins: 2 breast cancer maternal cousins: 2 colon cancer maternal aunt: colon cancer Patient has regular colonoscopies Hormonal History: menarche: 15 , breast fed: yes, age at first : 22 menopause: 57 BCP: none hormones: none Surgical history: 3 vertabra replaced in the neck Cholecystectomy lithotripsy left-sided kidney stones Medical history: arthritis Social History: smoke: none alcohol: occasional drugs: none - Constitutional Constitutional: Denies chills, Denies fever - EENT Comment: 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, 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, chronic dry eye Eyes: denies blurred vision, denies pain Ears, nose, mouth and throat: Reports headache, Denies sore throat - Breasts Breasts: bilateral: as per HPI - Cardiovascular Cardiovascular: Denies chest pain, Denies shortness of breath - Respiratory Respiratory: Denies cough, Denies 7 - Gastrointestinal Gastrointestinal: Reports diarrhea, Denies abdominal pain, Denies nausea, Denies vomiting - Genitourinary (Female) Genitourinary: Reports kidney stones - Menstruation Menstruation: Reports postmenopausal - Musculoskeletal Comment: arthritis, Limes disease 10 years ago Musculoskeletal: Reports myalgias - Integumentary Integumentary: Denies pruritus, Denies rash - Neurological Neurological: Reports numbness, Denies weakness - Psychiatric Psychiatric: Denies anxiety, Denies depression - Endocrine Endocrine: Denies fatigue - Hematologic/Lymphatic Comment: none - Allergic/Immunologic Allergic/Immunologic: Reports as per HPI Past Medical History Additional Past Medical History / Comment(s): BOWEL OBSTRUCTION x2; KIDNEY STONE History of Any Multi-Drug Resistant Organisms: None Reported Past Surgical History: Cholecystectomy Additional Past Surgical History / Comment(s): LITHOTRIPSY Past Psychological History: No Psychological Hx Reported Past Alcohol Use History: None Reported Past Drug Use History: None Reported - Past Family History Mother Family Medical History: Hypertension Additional Family Medical History / Comment(s): dementia Father Family Medical History: Myocardial Infarction ([place]) Medications and Allergies Home Medications Medication Instructions Recorded Confirmed Type Meloxicam 15 mg PO DAILY PRN 04/23/18 07/23/18 History Ascorbic Acid [Vitamin C] 500 mg PO DAILY 08/09/20 08/09/20 History Cholecalciferol [Vitamin D3 (25 25 mcg PO DAILY 08/09/20 08/09/20 History Mcg = 1000 Iu)] Vit C/E/Zn/Coppr/Lutein/Zeaxan 1 each PO DAILY 08/09/20 08/09/20 History [Preservision Areds 2 Softgel] Allergies Allergy/AdvReac Type Severity Reaction Status Date / Time Iodinated Contrast Media Allergy Severe Anaphylaxis Verified 08/09/20 11:03 [Iodinated Contrast Media - IV Dye] Sulfa (Sulfonamide Allergy Rash/Hives Verified 08/09/20 11:03 Antibiotics) Surgical - Exam BMI 32.7 - General well developed, no distress - Eyes normal ocular movement - ENT normal pinna, normal nares - Neck no masses, trachea midline - Respiratory normal expansion, normal respiratory effort, clear to auscultation - Cardiovascular Rhythm: regular Heart Sounds: normal: S1, S2 - Abdomen Abdomen: soft, bowel sounds - Integumentary normal turgor - Neurologic no disoriented, no combative - Musculoskeletal normal gait - Psychiatric oriented to time, oriented to person, oriented to place, speech is normal, memory intact breast exam: BRA: 42C inspection: grade 2/3 ptosis palpation: right breast: Multiple positional exam fibrocystic changes, no dominant masses or nodules of concern Right axilla: No adenopathy of concern Left breast: Multi-positional exam fibrocystic changes, no dominant masses or nodules of concern, particularly attention to the lateral area for which she felt nodularity does not reveal any lesions for which I'm concerned at this time Left axilla: No adenopathy of concern Results Mammogram and ultrasound results reviewed Assessment and Plan Assessment: Impression: 1. Fibrocystic breast changes 2. No radiographic abnormalities of concern in the breast 3. Nothing in the breast which would warrant biopsy at this time Plan: 1. Fibrocystic changes may be related to caffeine intake, I discussed this with the patient and she is already modifying her lifestyle. 2. Repeat bilateral mammogram in 1 year 3. Follow-up here as needed Cc: Dr. Garcia, Dr. Mina Encounter 25 minutes time spent in physical examination, reviewing records, and counselling.
== END | disposition home or self-care (01) ==
LOC: WWCWWP 10:54
PROVIDERS: ATTEND Surgery
DX: N60.19 Diffuse cystic mastopathy of unspecified breast (principal)

== ENCOUNTER → 2020-10-17 | Outpatient (CLI) | payer BC ==
--- NOTE | 2020-10-17 12:57 | MR ---
EXAMINATION TYPE: MR lumbar spine wo con DATE OF EXAM: 10/17/2020 11:22 AM COMPARISON: NONE HISTORY: Disc degeneration lumbar spine, low back pain, weakness Multiplanar, MultiSpin echo imaging of the lumbar spine was performed. L1-L2: Normal disc appearance without desiccation. No herniation, protrusion or disc bulging. No ca nal stenosis is present. Foramina are patent bilaterally. L2-L3: Normal disc appearance without desiccation. No herniation, protrusion or disc bulging. No ca nal stenosis is present. Foramina are patent bilaterally. L3-L4: Normal disc appearance without desiccation. No herniation, protrusion or disc bulging. No ca nal stenosis is present. Foramina are patent bilaterally. L4-L5: Mild disc desiccation with posterior disc bulge. No evidence of disc herniation or protrusion. No central stenosis. Facet joint arthropathy seen. No foraminal encroachment. L5-S1: Severe degenerative disc disease with vacuum disks noted. Posterior disc bulge with effacement ventral thecal sac. No evidence for herniation or protrusion. No central stenosis or lateral recess stenosis. Facet joint arthropathy with mild bilateral foraminal encroachment. Lumbar segments are intact. No paraspinal masses are identified. Conus medullaris has a normal appe arance. IMPRESSION: 1. Degenerative disc disease and disc bulging as discussed.
== END | disposition home or self-care (01) ==
LOC: RADMRIMAIN 10:40
PROVIDERS: ATTEND Family Medicine
DX: M51.36 Other intervertebral disc degeneration, lumbar region (principal); M51.26 Other intervertebral disc displacement, lumbar region
CPT/HCPCS: 72148

== ENCOUNTER → 2021-02-12 | Outpatient (CLI) | payer BC ==
--- NOTE | 2021-02-12 14:05 | MR ---
EXAMINATION TYPE: MR iac wo/w con DATE OF EXAM: 02/12/2021 COMPARISON: MR brain 09/23/2016 HISTORY: Lighnheadedness, dizziness, pain TECHNIQUE: Multiplanar, multisequence images of the brain and brainstem is performed without and with IV contras t, utilizing 9 mL intravenous Gadavist . FINDINGS: Diffusion weighted images demonstrate no evidence of a recent infarct or other diffusion ab normality. There is no extra-axial fluid collection or significant change in white matter signal abn ormality, punctate foci within the periventricular white matter of hyperintensity and inversion recov hamilton T2-weighted sequences show a similar appearance, 2-3 lesions are suspected. The ventricular syst em and cisternal spaces are normal in size and appearance. The brain volume is age appropriate. There is no evident mass along the internal auditory canal, signal is maintained, no cerebellopontine angle mass. Midline structures demonstrate normal morphology. Heterogeneous signal within the clivus is somewhat more pronounced, there is no evident cortical destruction The craniocervical junction appears within normal limits. Post contrast images demonstrate no abnormal enhancement. The dural venous sinuses ap pear patent. The visualized sinuses are clear and the globes are intact. IMPRESSION: No abnormality evident to account for patient's symptoms. Additional findings above.
== END | disposition home or self-care (01) ==
LOC: RADMRIMAIN 09:09
PROVIDERS: ATTEND Otolaryngology
DX: R42 Dizziness and giddiness (principal)
CPT/HCPCS: 70553; A9585

== ENCOUNTER → 2022-01-17 | Outpatient (CLI) | payer BC ==
--- NOTE | 2022-01-20 08:03 | MM ---
Reason for Exam: Screening (asymptomatic). Last mammogram was performed 1 year(s) and 6 month(s) ago. Patient History: Menarche at age 15. First Full-Term at age 22. Postmenopausal. Paternal grandmother had breast cancer. Risk Values: Candie 5 year model risk: 1.2%. NCI Lifetime model risk: 6.7%. Prior Study Comparison: 11/21/2016 Left Diagnostic Mammogram, [facility]. 06/24/2019 Bilateral Screening Mammogram, [facility]. 07/19/2020 Bilateral Diagnostic Mammogram, [facility]. Tissue Density: There are scattered fibroglandular densities. Findings: Analyzed By CAD. There is occasional round benign-appearing calcifications bilaterally. There is no suspicious new group of microcalcifications or new suspicious mass in either breast. Overall Assessment: Negative, BI-RAD 1 Management: Screening Mammogram of both breasts in 1 year. A clinical breast exam by your physician is recommended on an annual basis and results should be correlated with mammographic findings. Electronically signed and approved by: Davis Bush M.D.
--- NOTE | 2022-01-20 09:37 | BD ---
EXAMINATION TYPE: Axial Bone Density DATE OF EXAM: 01/17/2022 COMPARISON: NONE CLINICAL HISTORY: 61 years year old Female. ICD-10 CODE: Z12.31 Screen mammo N95.1 Post menopausal Height: 67 Weight: 204.5 FRAX RISK QUESTIONS: Alcohol (3 or more units per day): NO Family History (Parent hip fracture): NO Glucocorticoids (More than 3mos): NO History of Fracture in Adulthood: HAND, FOOT Secondary Osteoporosis: 1. Type 1 Diabetes: NO 2. Hyperthyroidism: NO 3. Menopause before 45: NO 4. Malnutrition: NO 5. Chronic liver disease: NO Rheumatoid Arthritis: NO Current Tobacco Use: NO RISK FACTORS HISTORY OF: Hip Fracture (Right/Left): NO Spine Fracture: NO History of Wrist Fracture: NO Surgery to Spine/Hip(right/left)/Wrist (right/left): CERVICAL SPINE FUSIONS When: 2019 Family History of Osteoporosis: YES, MOTHER, MATERNAL GRANDMOTHER Active: NO Diet low in dairy products/other sources of calcium: NO Postmenopausal woman: YES Take estrogen and/or progesterone medications: NO Lost more than 2 inches in height since high school: NO Frequent falls: YES Poor Health: NO Hyperparathyroidism: NO Adrenal Insufficiency: NO MEDICATIONS: Prednisone or other steroids: NO Thyroid Medications: NO Osteoporosis Medications: NO Additional Medications: , VIT D, MELOXICAM EXAM MEASUREMENTS: Bone mineral densitometry was performed using the [employer] System. Bone mineral density as measured about the Lumbar spine is: ----- L1-L4(G/cm2): 1.372 T Score Values are as follows: ----- L1: 0.7 ----- L2: 1.9 ----- L3: 1.5 ----- L4: 2.1 ----- L1-L4: 1.6 BASELINE STUDY Bone mineral density about the R hip (g/cm2): 1.047 Bone mineral density about the L hip (g/cm2): 1.051 T Score values are as follows: -----R Neck: 0.1 -----L Neck: 0.1 -----R Total: 0.7 -----L Total: 1.1 BASELINE STUDY FRAX%s: The graph provided illustrates a 5.8% chance for a major osteoporotic fx and a 0.1% chance fo r the hips probability for fx in 10 years time. IMPRESSION: Normal (Values between +1 and -1 indicate normal bone mass). Consider repeating this study in 5 year s or sooner if there is some new clinical indication. NOTE: T-SCORE=SD OF THE YOUNG ADULT MEAN.
== END | disposition home or self-care (01) ==
LOC: RADMAMWWP 09:35
PROVIDERS: ATTEND Obstetrics & Gynecology
DX: Z12.31 Encounter for screening mammogram for malignant neoplasm of breast (principal); Z78.0 Asymptomatic menopausal state
CPT/HCPCS: 77067; 77080

== ENCOUNTER → 2022-02-21 | Outpatient (CLI) | payer BC ==
--- NOTE | 2022-02-22 08:37 | US ---
EXAMINATION TYPE: US thyroid st tissue head/neck DATE OF EXAM: 02/21/2022 COMPARISON: NONE CLINICAL HISTORY: L04.0 ACUTE LYMPHADENITIS OF FACE. Palpable area left side of face posterior to lef t ear Palpable area of left side of face was imaged. Two subcentimeter hypoechoic oval areas were seen with measuring approximately 1.) 0.6 x 0.3 x 0.6 cm 2.) 0.7 x 0.5 x 0.6 cm These demonstrate central vascularity with central fatty hilum. IMPRESSION: There are 2 prominent morphologically benign lymph nodes in the left side of the face posterior to th e left ear, likely reactive.
== END | disposition home or self-care (01) ==
LOC: RADUSWWP 16:08
PROVIDERS: ATTEND Family Medicine
DX: D36.0 Benign neoplasm of lymph nodes (principal)
CPT/HCPCS: 76536

== ENCOUNTER → 2022-06-10 | Outpatient (CLI) | payer BC ==
--- NOTE | 2022-06-10 11:42 | XR ---
EXAMINATION TYPE: XR abdomen 2V DATE OF EXAM: 06/10/2022 COMPARISON: NONE HISTORY: Pain TECHNIQUE: One view abdominal series FINDINGS: The osseous structures are intact. The bowel gas pattern is nonspecific. Lung bases are clear. Surg ical clips in the gallbladder fossa. The prominent small bowel loops with air-fluid levels. Report ca lled to referring clinician 06/10/2022 11:40 AM. Surgical clip in pelvis. Calcifications appear vascu lar in the pelvis. IMPRESSION: 1. Prominent small bowel loops with air-fluid levels correlate for an enteritis, ileus or partial bow el obstruction. Report was called to referring clinician 11:40 AM 06/10/2022.
== END | disposition home or self-care (01) ==
LOC: RADXRYALE 11:06
PROVIDERS: ATTEND Family Medicine
DX: R10.84 Generalized abdominal pain (principal)
CPT/HCPCS: 74019

== ENCOUNTER → 2022-07-10 | Outpatient (CLI) | payer BC ==
--- NOTE | 2022-07-10 09:12 | US ---
EXAMINATION TYPE: US kidneys/renal and bladder DATE OF EXAM: 07/10/2022 COMPARISON: NONE CLINICAL HISTORY: L040 ACUTE LYMPHADENITIS FACE/HEAD/NECK, R109 ABD. pain EXAM MEASUREMENTS: Right Kidney: 11.6 x 5.1 x 4.3 cm Left Kidney: 9.5 x 5.3 x 4.4 cm Right Kidney: No hydronephrosis or masses seen Left Kidney: No hydronephrosis or masses seen Bladder: wnl Bilateral Jets seen: Yes IMPRESSION: 1. Normal renal ultrasound
[2022-07-10 10:06] LABS: African American GFR (CKD) >90 (>60 ml/min/1.73 sqM); Blood Urea Nitrogen 12 mg/dL (7-17); Non-African American GFR(CKD) >90 (>60 ml/min/1.73 sqM)
--- NOTE | 2022-07-10 10:08 | CT ---
EXAMINATION TYPE: CT soft tissue neck w con CT DLP: 790 mGycm, Automated exposure control for dose reduction was used. DATE OF EXAM: 07/10/2022 9:54 AM COMPARISON: None CLINICAL INDICATION:Female, 62 years old with history of L040 D119;, Lymphadenitis TECHNIQUE: Standard enhanced CT of the neck. Axial sections with coronal and sagittal reformats were obtained. Palpable marker placed at the area of palpable abnormality directed by patient. Contrast used:100 ml mL of Isovue 300 with IV Contrast, Oral contrast used: none. FINDINGS: Brain: Visualized portions are grossly unremarkable. Orbits: Unremarkable Sinuses: Grossly unremarkable. Spaces of the neck: Clear and symmetric. Palpable marker correlates with nonenlarged lymph nodes ed uring up to 3 mm. No suspicious masses, organizing fluid collections or enlarged lymph nodes. Musculoskeletal: No acute osseous pathology. Postsurgical changes to the lower spine involving C4-C7. Hardware appears in appropriate position. Lymph nodes: Multiple nonenlarged lymph nodes are seen along both anterior chains of the neck. Vascular structures: Visualized major arteries are patent without evidence of aneurysm. Thoracic Inlet/airway: Airway is patent. Prominent AP window lymph node measuring up to 10 mm in shor t axis. Soft tissues/Thyroid: Thyroid and remainder of the soft tissues are unremarkable. IMPRESSION 1. Left Palpable marker correlates with nonenlarged 3 mm lymph nodes. 2. Prominent superior mediastinal lymph node up to 10 mm. Comparisons with priors at outside institu tions would be of benefit. Consider complete evaluation of the chest with CT low dose chest.
== END | disposition home or self-care (01) ==
LOC: RADUSWWP 08:40
PROVIDERS: ATTEND Family Medicine
DX: Z01.812 Encounter for preprocedural laboratory examination (principal); D11.9 Benign neoplasm of major salivary gland, unspecified; N30.00 Acute cystitis without hematuria; L04.0 Acute lymphadenitis of face, head and neck; R10.9 Unspecified abdominal pain
CPT/HCPCS: 82565; 84520; 76770; 70491; 36415; Q9967

== ENCOUNTER → 2022-11-03 | Outpatient (CLI) | payer BC ==
--- NOTE | 2022-11-03 16:17 | CT ---
EXAMINATION TYPE: CT chest w con CT DLP: 431.0 mGycm, Automated exposure control for dose reduction was used. DATE OF EXAM: 11/03/2022 2:15 PM COMPARISON: Chest radiograph 04/23/2018, CT soft tissue neck 07/10/2022. CLINICAL INDICATION:Female, 62 years old with history of R59.0; PHH, swollen lymph nodes and poss mas s in chest TECHNIQUE: Multiple axial images were obtained through the chest following the administration of 100 cc of Isovue 300. . Coronal and sagittal reformats reviewed. FINDINGS: LUNGS/ PLEURA: No pleural effusion, pneumothorax, or focal consolidation. No suspicious pulmonary nod ule or mass. AIRWAY: Patent and unremarkable.. HEART: Size within normal limits. No pericardial effusion. MEDIASTINUM: No evidence of pathologically enlarged lymph nodes. VASCULATURE: No aortic aneurysm. MUSCULOSKELETAL: No acute osseous abnormalities. No aggressive osseous lesion. Partial visualization of anterior cervical fusion hardware. SOFT TISSUES/LYMPH NODES: Unremarkable. LOWER NECK: No significant findings. UPPER ABDOMEN: Fatty infiltration of the pancreas. Postcoital segment changes. IMPRESSION: 1. No acute thoracic process. 2. No evidence of suspicious intrathoracic mass or adenopathy.
== END | disposition home or self-care (01) ==
LOC: RADCTMAIN 13:46
PROVIDERS: ATTEND Otolaryngology
DX: R59.0 Localized enlarged lymph nodes (principal)
CPT/HCPCS: 71260; Q9967

== ENCOUNTER → 2023-02-19 | Outpatient (CLI) | payer BC ==
--- NOTE | 2023-02-20 08:02 | MM ---
Reason for Exam: Screening (asymptomatic). Last mammogram was performed 1 year(s) and 1 month(s) ago. Patient History: Menarche at age 15. First Full-Term at age 22. Postmenopausal. Paternal grandmother had breast cancer. Risk Values: Candie 5 year model risk: 1.3%. NCI Lifetime model risk: 6.6%. Prior Study Comparison: 06/24/2019 Bilateral Screening Mammogram, [facility]. 07/19/2020 Bilateral Diagnostic Mammogram, [facility]. 01/17/2022 Bilateral MG screening mammo w CAD, [facility]. Tissue Density: There are scattered fibroglandular densities. Findings: Analyzed By CAD. There is no suspicious group of microcalcifications or new suspicious mass in either breast. Overall Assessment: Negative, BI-RAD 1 Management: Screening Mammogram of both breasts in 1 year. A clinical breast exam by your physician is recommended on an annual basis and results should be correlated with mammographic findings. Note on Candie scores and lifetime risk: 1. A Candie score greater than 3% is considered moderate risk. If this is the case, consider specialist referral to assess eligibility for a risk reducing agent. If overall lifetime risk for the development of breast cancer is 20% or higher, the patient may qualify for future screening with alternating mammogram and breast MRI. Electronically signed and approved by: Noel Hoffman D.O.
== END | disposition home or self-care (01) ==
LOC: RADMAMWWP 13:45
PROVIDERS: ATTEND Obstetrics & Gynecology
DX: Z12.31 Encounter for screening mammogram for malignant neoplasm of breast (principal); Z78.0 Asymptomatic menopausal state; Z80.3 Family history of malignant neoplasm of breast
CPT/HCPCS: 77063; 77067

== ENCOUNTER → 2023-04-20 | Outpatient (CLI) | payer BC ==
--- NOTE | 2023-04-20 12:17 | XR ---
EXAMINATION TYPE: XR shoulder complete LT DATE OF EXAM: 04/20/2023 COMPARISON: NONE HISTORY: Pain TECHNIQUE: Three views are submitted. FINDINGS: The osseous structures are intact. There is moderate AC joint arthropathy with no erosive changes. P ostsurgical change overlying the cervical spine. IMPRESSION: 1. Moderate AC joint arthropathy. If there is concern for rotator cuff disease correlate with MRI.
== END | disposition home or self-care (01) ==
LOC: RADXRYALE 10:03
PROVIDERS: ATTEND Family Medicine
DX: M19.012 Primary osteoarthritis, left shoulder (principal); M25.512 Pain in left shoulder

== ENCOUNTER 2023-05-31 11:30 | Emergency (ER) | payer BC ==
[2023-05-31 12:08] VITALS: RESP 18; TEMP 98.2
[2023-05-31] MEDS ORDERED: SODIUM CHLORIDE 0.9% 1,000 ML IV STA (12:40)
[2023-05-31] MEDS ORDERED: diphenhydrAMINE 50 MG/ML 1 ML VIAL IVP STA (12:40)
[2023-05-31] MEDS ORDERED: KETOROLAC 15 MG/ML 1 ML VIAL IVP STA (12:40)
[2023-05-31] MEDS ORDERED: DEXAMETHASONE SOD PHOSPHATE 10 MG/ML 1 ML VIAL IVP STA (12:40)
[2023-05-31] MEDS ORDERED: METOCLOPRAMIDE 5 MG/ML 2 ML VIAL IVP STA (12:40)
--- NOTE | 2023-05-31 13:38 | ED ---
Headache HPI - General Chief Complaint: Headache Stated Complaint: HTN-Headache Time Seen by Provider: 05/31/23 12:29 Source: patient, RN notes reviewed Mode of arrival: ambulatory Limitations: no limitations - History of Present Illness Initial Comments: This is a 63-year-old female who presents to the emergency department for a headache. Patient reports being under a lot of stress this week, as her mother just and she had to help organize the . She developed a right-sided ocular migraine, which she has a history of. States that last night she did consume alcohol and became intoxicated, which is not typical for her. She has since had a left-sided headache. She would not describe this as the worst headache of her life. She called her brother who used to be a deputy coroner. States that he checked her blood pressure and it was found to be elevated. She contacted her PCPs office, who advised she come to the emergency department for evaluation. Denies a history of high blood pressure. Denies any visual changes, chest pain, or shortness of breath. MD Complaint: headache - Related Data Home Medications Medication Instructions Recorded Confirmed Meloxicam 15 mg PO DAILY PRN 04/23/18 08/09/20 Ascorbic Acid [Vitamin C] 500 mg PO DAILY 08/09/20 08/09/20 Cholecalciferol [Vitamin D3 (25 25 mcg PO DAILY 08/09/20 08/09/20 Mcg = 1000 Iu)] Vit C/E/Zn/Coppr/Lutein/Zeaxan 1 each PO DAILY 08/09/20 08/09/20 [Preservision Areds 2 Softgel] Allergies Allergy/AdvReac Type Severity Reaction Status Date / Time Iodinated Contrast Media Allergy Severe Anaphylaxis Verified 05/31/23 11:49 [Iodinated Contrast Media - IV Dye] Sulfa (Sulfonamide Allergy Rash/Hives Verified 05/31/23 11:49 Antibiotics) Review of Systems ROS Statement: Those systems with pertinent positive or pertinent negative responses have been documented in the HPI. ROS Other: All systems not noted in ROS Statement are negative. Past Medical History Additional Past Medical History / Comment(s): BOWEL OBSTRUCTION x2; KIDNEY STONE History of Any Multi-Drug Resistant Organisms: None Reported Past Surgical History: Cholecystectomy Additional Past Surgical History / Comment(s): LITHOTRIPSY Past Psychological History: No Psychological Hx Reported Smoking Status: Never smoker Past Alcohol Use History: Rare Past Drug Use History: None Reported - Past Family History Mother Family Medical History: Hypertension Additional Family Medical History / Comment(s): dementia Father Family Medical History: Myocardial Infarction (NM) General Exam Limitations: no limitations General appearance: alert, in no apparent distress Head exam: Present: atraumatic, normocephalic, normal inspection Eye exam: Present: normal appearance, PERRL, EOMI. Absent: scleral icterus, conjunctival injection, periorbital swelling Respiratory exam: Present: normal lung sounds bilaterally. Absent: respiratory distress, wheezes, rales, rhonchi, stridor Cardiovascular Exam: Present: regular rate, normal rhythm, normal heart sounds. Absent: systolic murmur, diastolic murmur, rubs, gallop, clicks Neurological exam: Present: alert, oriented X3, CN II-XII intact Psychiatric exam: Present: normal affect, normal mood Skin exam: Present: warm, dry, intact, normal color. Absent: rash Course Vital Signs 05/31/23 05/31/23 05/31/23 11:43 13:19 14:20 Temperature 98.2 F 98.2 F Pulse Rate 81 75 Respiratory 18 18 18 Rate Blood Pressure 163/95 153/81 129/67 O2 Sat by Pulse 98 99 Oximetry Medical Decision Making - Medical Decision Making This is a 63-year-old female who presents to the emergency department for a headache. Was pt. sent in by a medical professional or institution? @ -No Did you speak to anyone other than the patient for history? @ -No Did you review nursing and triage notes? @ -Yes, and I agree, it is accurate with regards to the patient's symptoms. Were old charts reviewed? @ -No Differential Diagnosis? @ -Differential Headache: Migraine, tension, cluster, carbon monoxide, central venous thrombosis, pension karma temporal arteritis, acute closure glaucoma, intercranial hemorrhage, mastoiditis, sinusitis, head injury, this is not meant to be an all-inclusive list. EKG interpreted by me (3pts min.)? @ -Not obtained X-rays interpreted by me (1pt min.)? @ -Not obtained CT interpreted by me (1pt min.)? @ -Not obtained U/S interpreted by me (1pt. min.)? @ -Not obtained What testing was considered but not performed? (CT, X-rays, U/S, labs)? Why? @ -None What meds were considered but not given? Why? @ -None Did you discuss the management of the patient with other professionals? @ -No Did you reconcile home meds? @ -No Was smoking cessation discussed for >3mins.? @ -No Was critical care preformed (if so, how long)? @ -No Were there social determinants of health that impacted care today? How? (Homelessness, low income, unemployed, alcoholism, drug addiction, transportation, low edu. Level, literacy, decrease access to med. care, long-term, rehab)? @ -No Was there de-escalation of care discussed even if they declined? (Discuss DNR or withdrawal of care, Hospice)? @ -No What co-morbidities impacted this encounter? (DM, HTN, Smoking, COPD, CAD, Cancer, CVA, Hep., AIDS, mental health diagnosis, sleep apnea, morbid obesity)? @ -Migraines Was patient admitted / discharged? @ -Discharged. We discussed that the headache may very well be related to her stress and the recent alcohol consumption. She was treated with a migraine cocktail consisting of IV fluids, Decadron, Toradol, Reglan, and Benadryl, and essentially had resolution of symptoms. Her blood pressure was elevated on arrival at 163/95, but improved to 129/67 at discharge. Advised ibuprofen and Tylenol as needed for pain relief if symptoms return. Patient discharged home i n stable condition and advised to follow-up with her primary care provider. Undiagnosed new problem with uncertain prognosis? @ -None Drug Therapy requiring intensive monitoring for toxicity (Heparin, Nitro, Insulin, Cardizem)? @ -None Were any procedures done? @ -None Diagnosis/symptom? @ -Headache Acute, or Chronic, or Acute on Chronic? @ -Acute Uncomplicated (without systemic symptoms) or Complicated (systemic symptoms)? @ -Uncomplicated Side effects of treatment? @ -None Exacerbation, Progression, or Severe Exacerbation] @ -Not applicable Poses a threat to life or bodily function? @ -No Return precautions reviewed in depth, the patient is instructed to return to the emergency department with any new, worsening, or concerning symptoms. Patient verbalized understanding. This case was discussed in detail with the attending ED physician, Dr. Yuen. Presentation, findings, and treatment plan discussed in detail as well. Disposition Clinical Impression: Headache Disposition: HOME SELF-CARE Instructions (If sedation given, give patient instructions): Acute Headache (ED) Additional Instructions: Return to the emergency department with any new, worsening, or concerning symptoms. Alternate with ibuprofen and Tylenol as needed for pain relief. Follow up with your primary care provider in 1-2 days. Is patient prescribed a controlled substance at d/c from ED?: No Referrals: Wenceslao Jackson DO [Primary Care Provider] - 1-2 days
[2023-05-31 14:31] VITALS: BP 129/67; PULSE 75
== END 2023-05-31 14:21 | disposition home or self-care (01) ==
LOC: EC 11:30
DX: R51.9 Headache, unspecified (principal); Z88.2 Allergy status to sulfonamides; Z91.041 Radiographic dye allergy status
CPT/HCPCS: 99284; 96374; 96375 ×3; 96361; J1200; J1100; J2765; J1885

== ENCOUNTER → 2023-11-23 | Outpatient (CLI) | payer BC ==
--- NOTE | 2023-11-23 08:53 | CT ---
EXAMINATION TYPE: CT chest wo con CT DLP: 487 mGycm, Automated exposure control for dose reduction was used. DATE OF EXAM: 11/23/2023 8:46 AM COMPARISON: 11/03/2022 CLINICAL INDICATION:Female, 63 years old with history of M546 PAIN IN THORACIC SPINE; PHH, Acute lymp hadenitis of trunk, pain thoracic spine, chest pressure. TECHNIQUE: Multiple axial images were obtained through the chest. Sagittal and coronal reformats were created for review. Contrast used: mL of (None if empty) Oral contrast used: (None if empty) FINDINGS: LUNGS/ PLEURA: No evidence for focal consolidation, pneumothorax or pleural effusion. AIRWAY: Patent and unremarkable. HEART: The heart is mildly enlarged for size and stable. MEDIASTINUM: No gross evidence of adenopathy. VASCULATURE: No aortic aneurysm. MUSCULOSKELETAL: No acute osseous abnormalities, mild pectus excavatum of the sternum/thoracic cage. Fixation hardware in cervical spine is intact. Mild multilevel degeneration changes of the spine. SOFT TISSUES/LYMPH NODES: Unremarkable. LOWER NECK: No significant findings. UPPER ABDOMEN: Gallbladder surgically absent. Lipomatous hypertrophy changes of the pancreas. IMPRESSION: 1. No evidence for acute process. 2. Mild pectus excavatum. 3. No evidence for lymphadenitis. 4. Mild hepatomegaly. 5. Lipomatous hypertrophy changes of the pancreatic parenchyma.
== END | disposition home or self-care (01) ==
LOC: RADCTMAIN 06:43
PROVIDERS: ATTEND Family Medicine
DX: R16.0 Hepatomegaly, not elsewhere classified (principal); Q67.6 Pectus excavatum; Q45.3 Other congenital malformations of pancreas and pancreatic duct; L04.1 Acute lymphadenitis of trunk
CPT/HCPCS: 71250

== ENCOUNTER → 2024-01-11 | Outpatient (CLI) | payer BC ==
--- NOTE | 2024-01-11 14:50 | CT ---
EXAMINATION TYPE: CT facial bones wo con DATE OF EXAM: 01/11/2024 COMPARISON: 12/08/2017 HISTORY: facial pain, headaches CT DLP: 649 mGycm Automated exposure control for dose reduction was used. TECHNIQUE: CT scan of the sinuses is performed without contrast, axial images are obtained, coronal r eformatted images are also reviewed. FINDINGS: The paranasal sinuses including the frontal, ethmoid, sphenoid, and maxillary sinuses bila terally are well-aerated without abnormal opacification. The ostiomeatal complex is patent bilateral ly on the coronal images. Visualized portion of mastoid air cells show no abnormal opacification. The globes are intact bilate rally. IMPRESSION: The sinuses are clear and the ostiomeatal complex is patent bilaterally.
== END | disposition home or self-care (01) ==
LOC: RADCTMAIN 14:17
PROVIDERS: ATTEND Family Medicine
DX: J32.0 Chronic maxillary sinusitis (principal); G50.1 Atypical facial pain; R51.9 Headache, unspecified
CPT/HCPCS: 70486

== ENCOUNTER → 2024-07-01 | Outpatient (CLI) | payer BC ==
--- NOTE | 2024-07-01 07:42 | MM ---
Reason for Exam: Screening (asymptomatic). Last mammogram was performed 1 year(s) and 5 month(s) ago. Patient History: Menarche at age 15. First Full-Term at age 22. Postmenopausal. Patient has history of breast feeding. Paternal grandmother had breast cancer. Risk Values: Candie 5 year model risk: 1.4%. NCI Lifetime model risk: 6.2%. Prior Study Comparison: 07/19/2020 Bilateral Diagnostic Mammogram, [facility]. 01/17/2022 Bilateral MG screening mammo w CAD, [facility]. 02/19/2023 Bilateral MG screening mammo w CAD, [facility]. Tissue Density: There are scattered areas of fibroglandular density. Findings: Analyzed By CAD. Right breast: There is no suspicious group of microcalcifications or new suspicious mass. Left breast: There is no suspicious group of microcalcifications or new suspicious mass. Overall Assessment: Negative, BI-RAD 1 Management: Screening Mammogram of both breasts in [address] [facility] will attempt to contact patient to return for supplemental views and ultrasound if indicated. Patient should continue monthly self-breast exams. A clinical breast exam by your physician is recommended on an annual basis. This exam should not preclude additional follow-up of suspicious palpable abnormalities. Note on Candie scores and lifetime risk: 1. A Candie score greater than 3% is considered moderate risk. If this is the case, consider specialist referral to assess eligibility for a risk reducing agent. 2. If overall lifetime risk for the development of breast cancer is 20% or higher, the patient may qualify for future screening with alternating mammogram and breast MRI. [facility], , 07/01/2024 7:39 AM. Electronically signed and approved by: Bob Edwards DO
== END | disposition home or self-care (01) ==
LOC: RADMAMWWP 06:58
PROVIDERS: ATTEND Family Medicine
DX: Z12.31 Encounter for screening mammogram for malignant neoplasm of breast (principal); Z78.0 Asymptomatic menopausal state; Z80.3 Family history of malignant neoplasm of breast; R92.323 Mammographic fibroglandular density, bilateral breasts
CPT/HCPCS: 77067